=== PATIENT | female | born 1990 | race Caucasian/White ===

== ENCOUNTER 2022-08-20 23:04 | Emergency (ER) | payer MEDICAID, OTHER ==
[~2022-08-20] VITALS: Ht 160 cm; Wt 99.8 kg
[2022-08-21] MEDS ORDERED: IPRATROPIUM NEB FS 0.5 MG/2.5 ML AMPUL.NEB ONE (00:18)
[2022-08-21] MEDS ORDERED: ALBUTEROL FS 2.5 MG/3 ML VIAL.NEB ONE ×2 (00:18→01:42)
--- NOTE | 2022-08-21 00:20 | NUR ---
BIBS FROM HOME WITH CC OF COUGH AND SOB. +WHEEZING, -CP DISTRESS. AAOX4. HAS HX OF ASTHMA. ABLE TO MAKE NEEDS KNOWN. VITALS CHECKED. PLACED COMFORTABLY IN BED.
[2022-08-21] MEDS ORDERED: predniSONE 20 MG TABLET ONE (00:29)
[2022-08-21] MEDS ORDERED: ALBUTEROL FS 2.5 MG/3 ML VIAL.NEB NEB ONE ×2 (00:30→02:00)
[2022-08-21] MEDS ORDERED: IPRATROPIUM NEB FS 0.5 MG/2.5 ML AMPUL.NEB NEB ONE (00:30)
[2022-08-21] MEDS ORDERED: predniSONE 20 MG TABLET PO ONE (00:30)
[2022-08-21] MEDS ORDERED: ALBU8.5H8 INH (03:10)
[2022-08-21] MEDS ORDERED: PRED20TA PO (03:10)
[2022-08-21 03:34] VITALS: BP 149/95
--- NOTE | 2022-08-21 03:34 | NUR ---
Patient discharged to home in stable condition. Written and verbal after care instructions given. Patient verbalizes understanding of instruction.
== END 2022-08-21 03:34 | disposition home or self-care (01) ==
LOC: ER 23:15
DX: J45.901 Unspecified asthma with (acute) exacerbation (principal)
CPT/HCPCS: 99291; 94645; 94644 ×2; J7512

== ENCOUNTER 2022-09-06 02:51 | Emergency (ER) | payer OTHER ==
[~2022-09-06] VITALS: Ht 162.6 cm; Wt 90.7 kg
[~2022-09-06 02:51] MED LIST: ALBU8.5H8 INH; PRED20TA PO
[2022-09-06] MEDS ORDERED: IPRATROPIUM NEB FS 0.5 MG/2.5 ML AMPUL.NEB ONE ×2 (03:06→03:20)
[2022-09-06] MEDS ORDERED: ALBUTEROL FS 2.5 MG/0.5 ML VIAL.NEB ONE ×3 (03:06→04:09)
[2022-09-06] MEDS ORDERED: DEXAMETHASONE SOD PHOSPHATE 10 MG/ML VIAL ONE (03:08)
[2022-09-06] MEDS ORDERED: DEXAMETHASONE SOD PHOSPHATE 4 MG/ML VIAL IM ONE (03:30)
[2022-09-06] MEDS ORDERED: ALBUTEROL FS 2.5 MG/0.5 ML VIAL.NEB NEB ONE ×3 (03:30→04:00)
[2022-09-06] MEDS ORDERED: IPRATROPIUM NEB FS 0.5 MG/2.5 ML AMPUL.NEB NEB ONE (03:30)
[2022-09-06] MEDS ORDERED: PRED50TA PO (03:50)
[2022-09-06 04:38] VITALS: BP 129/77
== END 2022-09-06 04:38 | disposition home or self-care (01) ==
LOC: ER 02:55
DX: J45.901 Unspecified asthma with (acute) exacerbation (principal); Z79.899 Other long term (current) drug therapy
CPT/HCPCS: 99283; 96372; 94640 ×2; J1100

== ENCOUNTER 2022-09-22 00:12 | Emergency (ER) | payer OTHER ==
[~2022-09-22] VITALS: Ht 162.6 cm; Wt 90.7 kg
[~2022-09-22 00:12] MED LIST changes: +PRED50TA PO
--- NOTE | 2022-09-22 00:20 | NUR ---
PRESENTED TO THE ER W/ C/O BILATERAL WHEEZING AND SOB. SATTING 87-88% ON R/A. PLACED IN BED 6 ER ON MONITOR, RT CALLED AND MD MADE AWARE.
--- NOTE | 2022-09-22 00:21 | NUR ---
RT CALLED FOR BREATHING TX
[2022-09-22] MEDS ORDERED: IPRATROPIUM NEB FS 0.5 MG/2.5 ML AMPUL.NEB NEB ONE ×2 (00:30→01:30)
[2022-09-22] MEDS ORDERED: ALBUTEROL FS 2.5 MG/0.5 ML VIAL.NEB NEB ONE ×3 (00:30→02:00)
[2022-09-22] MEDS ORDERED: DEXAMETHASONE SOD PHOSPHATE 4 MG/ML VIAL IM ONE (00:30)
[2022-09-22] MEDS ORDERED: DEXAMETHASONE SOD PHOSPHATE 10 MG/ML VIAL ONE (00:34)
[2022-09-22] MEDS ORDERED: IPRATROPIUM NEB FS 0.5 MG/2.5 ML AMPUL.NEB ONE ×2 (00:49→01:06)
[2022-09-22] MEDS ORDERED: ALBUTEROL FS 2.5 MG/0.5 ML VIAL.NEB ONE ×3 (00:49→01:43)
--- NOTE | 2022-09-22 00:49 | NUR ---
RT at pt's bedside for breathing tx
[2022-09-22] MEDS ORDERED: ALBU8.5H8 INH (01:04)
[2022-09-22] MEDS ORDERED: PRED50TA PO (01:04)
--- NOTE | 2022-09-22 02:12 | NUR ---
Patient discharged to home in stable condition. Written and verbal after care instructions given. Patient verbalizes understanding of instruction.
[2022-09-22 02:52] VITALS: BP 139/78
== END 2022-09-22 02:12 | disposition home or self-care (01) ==
LOC: ER 00:15
DX: J45.901 Unspecified asthma with (acute) exacerbation (principal); Z79.899 Other long term (current) drug therapy
CPT/HCPCS: 99285; 96372; 94640 ×3; J1100

== ENCOUNTER 2022-10-09 02:31 | Inpatient (IN) | payer OTHER ==
[~2022-10-09] VITALS: Ht 162.6 cm; Wt 99.8 kg
[2022-10-09] MEDS ORDERED: methylPREDNISolone SOD SUCC 125 MG/2ML VIAL IV ONE (03:00)
[2022-10-09] MEDS ORDERED: ALBUTEROL FS 2.5 MG/3 ML VIAL.NEB CONTNEB ONE ×2 (03:00→05:00)
[2022-10-09] MEDS ORDERED: TDAP [DIPH/PERTUSSIS/TET] 0.5 ML VIAL IM ONE (03:00)
[2022-10-09] MEDS ORDERED: IPRATROPIUM NEB FS 0.5 MG/2.5 ML AMPUL.NEB NEB ONE ×2 (03:00→07:35)
[2022-10-09] MEDS ORDERED: LIDOCAINE 1%-EPI 1:100,000 20 ML VIAL TP ONE (03:00)
[2022-10-09] MEDS ORDERED: HYDROCODONE/APAP 5/325MG TABLET PO ONE (03:00)
--- NOTE | 2022-10-09 03:00 | NUR ---
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 Connected to the monitor and pulse ox. kept comfortable, will continue to monitor accordingly.
[2022-10-09] MEDS ORDERED: ALBUTEROL FS 2.5 MG/3 ML VIAL.NEB ONE ×2 (03:05→04:31)
[2022-10-09] MEDS ORDERED: IPRATROPIUM NEB FS 0.5 MG/2.5 ML AMPUL.NEB ONE (03:05)
[2022-10-09] MEDS ORDERED: methylPREDNISolone SOD SUCC 125 MG/2ML VIAL ONE (03:08)
--- NOTE | 2022-10-09 03:21 | NUR ---
RT at bedside, breathing treatment given.
[2022-10-09 03:33] LABS: BASOPHILS # (AUTO) 0.1 K/uL (0.0-0.2); BASOPHILS % (AUTO) 0.4 % (0.0-2.0); EOSINOPHILS % (AUTO) 8.2 % (0.0-6.0); HEMATOCRIT 39 % (33-45); HEMOGLOBIN 12.4 g/dL (11.5-14.8); LYMPHOCYTES # (AUTO) 1.8 K/uL (0.8-4.8); LYMPHOCYTES % (AUTO) 12.6 % (20.0-44.0); MEAN CORPUSCULAR HGB CONC 32 g/dl (31.0-36.0); MEAN CORPUSCULAR VOLUME 84 fL (82-100); MONOCYTES # (AUTO) 0.9 K/uL (0.1-1.30); MONOCYTES % (AUTO) 6.3 % (2.0-12.0); NEUTROPHILS # (AUTO) 10.3 K/uL (1.8-8.9); NEUTROPHILS % (AUTO) 72.5 % (43.0-81.0); PLATELET COUNT (AUTO) 327 K/uL (150-450); RED BLOOD CELL COUNT(AUTO) 4.68 MIL/uL (4.0-5.2); WHITE BLOOD COUNT (AUTO) 14.2 K/uL (4.3-11.0)
[2022-10-09 03:41] LABS: CARBON DIOXIDE 25 mmol/L (21-32); CHLORIDE 104 mmol/L (98-107); CREATININE 0.8 mg/dL (0.6-1.3); GLUCOSE 123 mg/dL (74-106); POTASSIUM 3.2 mmol/L (3.5-5.1); SODIUM SERUM 141 mmol/L (136-145); UREA NITROGEN, BLOOD 12 mg/dL (7-18)
[2022-10-09 03:55] LABS: ALANINE AMINOTRANSFERASE 30 U/L (12-78); ALBUMIN 3.4 g/dL (3.4-5.0); ALKALINE PHOSPHATASE 74 U/L (46-116); ASPARTATE AMINOTRANSFERASE 17 U/L (15-37); BILIRUBIN,DIRECT 0.1 mg/dL (0.0-0.2); BILIRUBIN,TOTAL 0.3 mg/dL (0.2-1.0); TOTAL PROTEIN, SERUM 7.7 g/dL (6.4-8.2)
--- NOTE | 2022-10-09 04:26 | NUR ---
covid swab collected and sent to lab
[2022-10-09] MEDS ORDERED: POTASSIUM CHLORIDE 20 MEQ TAB.PRT.SR PO ONE ×2 (04:30→04:49)
[2022-10-09] MEDS ORDERED: AZITHROMYCIN 500 MG in IV D5W 250 ML IV ONE (04:30)
[2022-10-09] MEDS ORDERED: CEFTRIAXONE 1GM BAG (ER ONLY) 1 GM/50 ML PIGGYBACK IV ONE (04:30)
[2022-10-09] MEDS ORDERED: AZITHROMYCIN 500 MG VIAL ONE (04:48)
[2022-10-09] MEDS ORDERED: CEFTRIAXONE 1 G VIAL ONE (04:48)
[2022-10-09] MEDS ORDERED: MAGNESIUM HYDROXIDE 30 ML UDC PO PRN (05:00)
[2022-10-09] MEDS ORDERED: ACETAMINOPHEN 325 MG TABLET PO PRN (05:00)
[2022-10-09] MEDS ORDERED: ONDANSETRON HCL/PF 4 MG/2 ML VIAL IVP PRN (05:00)
[2022-10-09] MEDS ORDERED: ALBUTEROL FS 2.5 MG/3 ML VIAL.NEB NEB ONE (07:35)
--- NOTE | 2022-10-09 07:41 | NUR ---
GOT BED 322-1 ADMITTING INFORMED.
--- NOTE | 2022-10-09 08:03 | NUR ---
REPORT GIVEN TO TREVON RN FOR CONTINUITY OF CARE.
--- NOTE | 2022-10-09 08:25 | NUR ---
ADMISSION NOTE Received patient from ER via gurney. Report given by CARLOS Peoples. Patient is A/O x 4, able to make needs known. On O2 at 3 LPM via NC, no s/s of distress noted. IV access on Left hand #22, SL intact and patent. All belongings accounted for, belonging sheet signed. VS taken as follows: BP 123/73, HR 103, RR 20, Temp 97.9 F, SPO2 94%. External monitor connected, reading sinus tachycardia. Skin assessment done, c/d/i. Wheezing noted upon auscultation. Bowel sounds present x 4. Safety precautions in place: bed in low, locked position; siderails up x 2; call light within reach. Will continue to monitor.
[2022-10-09] MEDS: methylPREDNISolone SOD SUCC 40 MG/ML VIAL IV SCH ×2 (08:51→16:28)
[2022-10-09] MEDS ORDERED: ALBU8.5H8 IH (09:56)
--- NOTE | 2022-10-09 11:00 | NUR ---
RN NOTE Urine collected and sent to lab.
[2022-10-09 11:08] VITALS: BP 131/69
[2022-10-09] MEDS ORDERED: ALBUTEROL FS 2.5 MG/3 ML VIAL.NEB NEB PRN (13:30)
[2022-10-09] MEDS: IPRATROPIUM NEB FS 0.5 MG/2.5 ML AMPUL.NEB NEB SCH ×2 (13:56→20:05)
[2022-10-09] MEDS: ALBUTEROL FS 2.5 MG/3 ML VIAL.NEB NEB SCH ×2 (13:56→20:05)
[2022-10-09 15:58] VITALS: BP 135/81
--- NOTE | 2022-10-09 18:46 | NUR ---
MS RN CLOSING NOTE Patient in bed, resting. A/O x 4, able to make needs known. On O2 at 5 LPM via NC, no s/s of distress noted. IV access on Left hand #22, SL intact and patent. Patient denies any pain or discomfort at this time. Safety precautions in place: bed in low, locked position; siderails up x 2; call light within reach. Will endorse to fast food shift lead nurse for GRISELDA. Addendum: 10/09/22 at 1851 by BERNA FRAGA RN ADD: All needs attended to. Due meds given.
--- NOTE | 2022-10-09 19:30 | NUR ---
MS RN OPENING NOTE RECEIVED PATIENT IN BED, ASLEEP BUT EASY TO AROUSE AND RESPONSIVE. ALERT AND ORIENTED X4. ABLE TO MAKE NEEDS KNOWN. AFEBRILE AND NOT IN ANY FORM OF ACUTE DISTRESS. ON O2 INHALATION VIA NASAL CANNULA AT 5LPM. WITH IV ACCESS ON R WRIST 22G-SL. SAFETY MEASURES IN PLACE. KEPT BED IN LOCKED AND IN LOW POSITION. SIDE RAILS UP X2. ADVISED TO USE THE CALL LIGHT WHEN IN NEED OF ASSISTANCE.
[2022-10-09 19:57] VITALS: BP 140/87
[2022-10-10] MEDS: methylPREDNISolone SOD SUCC 40 MG/ML VIAL IV SCH ×3 (00:24→16:22)
[2022-10-10] MEDS: IPRATROPIUM NEB FS 0.5 MG/2.5 ML AMPUL.NEB NEB SCH ×5 (01:30→20:12)
[2022-10-10] MEDS: ALBUTEROL FS 2.5 MG/3 ML VIAL.NEB NEB SCH ×5 (01:30→20:12)
[2022-10-10] MEDS ORDERED: CEFTRIAXONE 1 G in IV D5W 50 ML IV SCH (04:00)
[2022-10-10] MEDS ORDERED: ZITHROMAX 500 MG/250 ML D5W IV SCH ×2 (05:00)
[2022-10-10] MEDS ORDERED: AZITHROMYCIN 500 MG in IV D5W 250 ML IV SCH (05:00)
[2022-10-10 06:27] LABS: BASOPHILS % (AUTO) 0.1 % (0.0-2.0); HEMATOCRIT 37 % (33-45); HEMOGLOBIN 11.7 g/dL (11.5-14.8); LYMPHOCYTES % (AUTO) 4.9 % (20.0-44.0); MEAN CORPUSCULAR HGB CONC 31 g/dl (31.0-36.0); MEAN CORPUSCULAR VOLUME 85 fL (82-100); MONOCYTES % (AUTO) 5.1 % (2.0-12.0); NEUTROPHILS # (AUTO) 17.6 K/uL (1.8-8.9); NEUTROPHILS % (AUTO) 89.9 % (43.0-81.0); PLATELET COUNT (AUTO) 353 K/uL (150-450); RED BLOOD CELL COUNT(AUTO) 4.39 MIL/uL (4.0-5.2); WHITE BLOOD COUNT (AUTO) 19.6 K/uL (4.3-11.0)
--- NOTE | 2022-10-10 06:30 | NUR ---
MS RN CLOSING NOTE PATIENT IN BED, ASLEEP BUT EASY TO AROUSE AND RESPONSIVE. ALERT AND ORIENTED X4. ABLE TO MAKE NEEDS KNOWN. AFEBRILE AND NOT IN ANY FORM OF ACUTE DISTRESS. ON O2 INHALATION VIA NASAL CANNULA AT 5LPM. WITH IV ACCESS ON R WRIST 22G-SL. MEDICATED ORDERED. ON IV ATB, MONITORED FOR ANY ADVERSE REACTION. SAFETY MEASURES IN PLACE. KEPT BED IN LOCKED AND IN LOW POSITION. SIDE RAILS UP X2. ADVISED TO USE THE CALL LIGHT WHEN IN NEED OF ASSISTANCE. ALL NURSING NEEDS ATTENDED. ENDORSED TO INCOMING SHIFT FOR CONTINUITY OF CARE.
[2022-10-10 06:45] LABS: CALCIUM, SERUM 9.6 mg/dL (8.5-10.1); CREATININE 0.7 mg/dL (0.6-1.3); MAGNESIUM 2.2 mg/dL (1.8-2.4); POTASSIUM 4.4 mmol/L (3.5-5.1)
--- NOTE | 2022-10-10 07:30 | NUR ---
RN OPENING NOTE RECEIVED PATIENT IN BED, AWAKE. A/O X4, VERBALLY RESPONSIVE AND ABLE TO MAKE NEEDS KNOWN. NO SIGNS OF ACUTE DISTRESS NOTED. ON O2 INHALATION @ 5LPM VIA N/C, PATIENT DENIES SOB, BREATHING EVEN AND UNLABORED. PATIENT STATED SHE FEELS BETTER. DENIES ANY PAIN OR DISCOMFORT. NOTED WITH IV ACCESS ON RIGHT WRIST #22G, INTACT AND PATENT, SALINE LOCKED. SAFETY MEASURE IN PLACE. BED IN LOW AND LOCKED POSITION, SIDE RAILS UP X2, CALL LIGHT PLACED WITHIN EASY REACH. WILL CONTINUE TO MONITOR PATIENT.
[2022-10-10 09:02] VITALS: BP 125/67
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
[2022-10-10] MEDS ORDERED: diphenhydrAMINE HCL 25 MG CAPSULE PO PRN (09:25)
[2022-10-10] MEDS: AZITHROMYCIN 250 MG TABLET PO SCH (12:02)
--- NOTE | 2022-10-10 18:41 | NUR ---
RN CLOSING NOTE PATIENT IN BED, AWAKE. NO SIGNS OF ACUTE DISTRESS NOTED. TITRATED O2 INHALATION TO 3LPM VIA N/C, SATURATION @93-95%, BREATHING EVEN AND UNLABORED. DENIED ANY PAIN OR DISCOMFORT THROUGHOUT THE SHIFT. WITH IV ACCESS ON RIGHT WRIST #22G, INTACT AND PATENT, SALINE LOCKED. ALL DUE MEDS GIVEN. SAFETY MEASURE MAINTAINED. BED IN LOW AND LOCKED POSITION, SIDE RAILS UP X2, CALL LIGHT PLACED WITHIN EASY REACH. WILL ENDORSE TO NEXT SHIFT FOR GRISELDA.
--- NOTE | 2022-10-10 19:15 | NUR ---
RN OPENING NOTE RECEIVED PATIENT IN BED, AWAKE, ALERT AND ORIENTED X4, VERBALLY RESPONSIVE AND ABLE TO MAKE NEEDS KNOWN. NO SIGNS OF ACUTE DISTRESS NOTED. ON O2 INHALATION @ 3LPM VIA N/C, PATIENT DENIES SOB, BREATHING EVEN AND UNLABORED. DENIES ANY PAIN OR DISCOMFORT AT THIS TIME. NOTED WITH IV ACCESS ON RIGHT WRIST #22G, INTACT AND PATENT, SALINE LOCKED. SAFETY MEASURE IN PLACE. BED IN LOW AND LOCKED POSITION, SIDE RAILS UP X2, CALL LIGHT PLACED WITHIN EASY REACH. WILL CONTINUE TO MONITOR PATIENT THROUGHOUT THE SHIFT.
--- NOTE | 2022-10-10 19:40 | NUR ---
RN OPENING NOTE RECEIVED PATIENT IN BED, AWAKED AOX4 ABLE TO MAKE NEEDS KNOWN.ON RM AIR YOKO WELL SAT 97.9% NO SOB/DISTRESS NOTED,BREATHING EVEN UNLABORED,IV ACCESS ON CHELI ML SL,PATENT AND INTACT,SAFETY MEASURE IN PLACE. BED IN LOW AND LOCKED POSITION, SIDE RAILS UP X2, CALL LIGHT PLACED WITHIN EASY REACH. WILL CONTINUE TO MONITOR.
[2022-10-10 20:00] VITALS: BP 147/73
[2022-10-11] MEDS: methylPREDNISolone SOD SUCC 40 MG/ML VIAL IV SCH ×2 (00:05→08:28)
[2022-10-11] MEDS: IPRATROPIUM NEB FS 0.5 MG/2.5 ML AMPUL.NEB NEB SCH ×4 (01:30→13:30)
[2022-10-11] MEDS: ALBUTEROL FS 2.5 MG/3 ML VIAL.NEB NEB SCH ×4 (01:30→13:30)
--- NOTE | 2022-10-11 06:13 | NUR ---
RN OPENING NOTE PATIENT IN BED ASLEEP, AROUSES EASILY. NO SIGNS OF ACUTE DISTRESS NOTED. ON O2 INHALATION @ 3LPM VIA N/C, PATIENT DENIES SOB, BREATHING EVEN AND UNLABORED. DENIES ANY PAIN OR DISCOMFORT AT THIS TIME. WITH IV ACCESS ON RIGHT WRIST #22G, INTACT AND PATENT, SALINE LOCKED. SAFETY MEASURES IN PLACE. BED IN LOW AND LOCKED POSITION, SIDE RAILS UP X2, CALL LIGHT PLACED WITHIN EASY REACH. WILL ENDORSE TO ONCOMING SHIFT FOR CONTINUITY OF CARE.
--- NOTE | 2022-10-11 07:59 | NUR ---
MS RN OPENING NOTE Patient in bed, asleep. A/O x 4. On O2 at 3 LPM via NC, no s/s of distress noted. IV access on Left hand #22 SL, intact and patent. Safety precautions in place: bed in low, locked position; siderails up x2; call light within reach. Will continue to monitor.
[2022-10-11 08:00] VITALS: BP 120/78
[2022-10-11] MEDS: AZITHROMYCIN 250 MG TABLET PO SCH (11:50)
[2022-10-11] MEDS ORDERED: METH4TAB17 PO (13:02)
[2022-10-11] MEDS ORDERED: AZIT250T PO (13:02)
--- NOTE | 2022-10-11 13:30 | NUR ---
DISCHARGE NOTE Received order for discharge. Patient is A/O x 4, able to make needs known. Stable on room air, no SOB or s/s of distress noted. Discharge instructions given both verbally and in written form, verbalized understanding. Denies any pain or discomfort at this time. All belongings accounted for, belonging sheet signed. IV access removed, catheter tip intact. Pressure dressing applied. ID band removed. Patient left unit ambulatory in stable condition.
== END 2022-10-11 13:30 | disposition home or self-care (01) | DRG 141 ==
LOC: ER 02:33 → TELE 07:45 → MED 15:55
PROVIDERS: ADMIT Nurse Practitioner Acute Care; ATTEND Nurse Practitioner Acute Care
DX: J45.901 Unspecified asthma with (acute) exacerbation (principal); J96.01 Acute respiratory failure with hypoxia; J45.902 Unspecified asthma with status asthmaticus; J32.9 Chronic sinusitis, unspecified; E66.01 Morbid (severe) obesity due to excess calories; Z68.37 Body mass index [BMI] 37.0-37.9, adult; F17.210 Nicotine dependence, cigarettes, uncomplicated; E87.6 Hypokalemia; Z20.822 Contact with and (suspected) exposure to COVID-19; G47.33 Obstructive sleep apnea (adult) (pediatric); Z79.899 Other long term (current) drug therapy; Z90.49 Acquired absence of other specified parts of digestive tract
CPT/HCPCS: 36415; 36600; 70220-TC; 71045-TC; 80048-TC; 80076-TC; 82803-TC; 83735-TC; 83880; 84100-TC; 84484-TC; 84703-TC; 85025-TC; 87081-TC; 94799-TC; A4223; C9803; G0378; J0456; J0696; J2920; J2930; J7030; J7050; J7060; Q0163

== ENCOUNTER 2022-11-01 23:25 | Emergency (ER) | payer OTHER ==
[~2022-11-01] VITALS: Ht 162.6 cm; Wt 99.8 kg
[2022-11-01 23:25] VITALS: BP 142/98
[~2022-11-01 23:25] MED LIST changes: +ALBU8.5H8 IH; -ALBU8.5H8 INH; +AZIT250T PO; +METH4TAB17 PO; -PRED20TA PO; -PRED50TA PO
[2022-11-01] MEDS ORDERED: methylPREDNISolone SOD SUCC 125 MG/2ML VIAL IV ONE (23:30)
[2022-11-01] MEDS ORDERED: Magnesium 1GM/D5W 100ML PREMIX 200 ML IV ONE (23:30)
[2022-11-01] MEDS ORDERED: ALBUTEROL FS 2.5 MG/3 ML VIAL.NEB NEB ONE (23:30)
[2022-11-01] MEDS ORDERED: IPRATROPIUM NEB FS 0.5 MG/2.5 ML AMPUL.NEB NEB ONE (23:30)
[2022-11-01] MEDS ORDERED: IPRATROPIUM NEB FS 0.5 MG/2.5 ML AMPUL.NEB ONE (23:36)
[2022-11-01] MEDS ORDERED: ALBUTEROL FS 2.5 MG/3 ML VIAL.NEB ONE (23:36)
[2022-11-01] MEDS ORDERED: Magnesium 1GM/D5W 100ML PREMIX 100 ML IV ONE (23:49)
[2022-11-01] MEDS ORDERED: methylPREDNISolone SOD SUCC 125 MG/2ML VIAL ONE (23:49)
[2022-11-02] MEDS ORDERED: IPRATROPIUM NEB FS 0.5 MG/2.5 ML AMPUL.NEB ONE ×2 (00:38→01:53)
[2022-11-02] MEDS ORDERED: ALBUTEROL FS 2.5 MG/3 ML VIAL.NEB ONE ×2 (00:38→01:53)
[2022-11-02] MEDS ORDERED: IPRATROPIUM NEB FS 0.5 MG/2.5 ML AMPUL.NEB NEB ONE ×2 (01:00→02:00)
[2022-11-02] MEDS ORDERED: ALBUTEROL FS 2.5 MG/3 ML VIAL.NEB NEB ONE ×2 (01:00→02:00)
[2022-11-02] MEDS ORDERED: ALBU18HF2 INH (01:37)
[2022-11-02] MEDS ORDERED: PRED50TA PO (01:37)
[2022-11-02] MEDS ORDERED: BUDE10.2 INH (02:35)
--- NOTE | 2022-11-02 02:55 | NUR ---
Patient discharged to home in stable condition. Written and verbal after care instructions given. Patient verbalizes understanding of instruction. IV removed. Catheter intact and site benign. Pressure and 4x4 applied to site. No bleeding noted.
== END 2022-11-02 03:03 | disposition home or self-care (01) ==
LOC: ER 23:27
DX: J45.901 Unspecified asthma with (acute) exacerbation (principal); Z79.899 Other long term (current) drug therapy
CPT/HCPCS: 99291; 96374; 96375; 94640 ×2; J2930; A4223; J3475

== ENCOUNTER 2022-11-27 20:18 | Inpatient (IN) | payer OTHER ==
[~2022-11-27] VITALS: Ht 162.6 cm; Wt 117.9 kg
[~2022-11-27 20:18] MED LIST changes: +ALBU18HF2 INH; +BUDE10.2 INH; +PRED50TA PO
[2022-11-27] MEDS ORDERED: ALBUTEROL FS 2.5 MG/3 ML VIAL.NEB ONE ×3 (20:50→23:25)
--- NOTE | 2022-11-27 20:50 | NUR ---
BIBSELF FROM HOME C/O SOB, WHEEZING NOTED. SATTING 81% ON R/A. HX ASTHMA. AMBULATORY, PLACED IN BED, DYSPNEIC RR- 25. MD AT BEDSIDE FOR EVAL.
[2022-11-27] MEDS ORDERED: IPRATROPIUM NEB FS 0.5 MG/2.5 ML AMPUL.NEB ONE ×2 (20:51→21:58)
[2022-11-27] MEDS ORDERED: predniSONE 20 MG TABLET ONE (20:52)
--- NOTE | 2022-11-27 20:56 | NUR ---
X-RAY TECH AT BEDSIDE
[2022-11-27] MEDS ORDERED: ALBUTEROL FS 2.5 MG/3 ML VIAL.NEB CONTNEB ONE ×3 (21:00→23:30)
[2022-11-27] MEDS ORDERED: IPRATROPIUM NEB FS 0.5 MG/2.5 ML AMPUL.NEB NEB ONE ×2 (21:00→22:00)
[2022-11-27] MEDS ORDERED: predniSONE 20 MG TABLET PO ONE (21:00)
[2022-11-27] MEDS ORDERED: Magnesium 1GM/D5W 100ML PREMIX 100 ML IV ONE ×2 (21:55→23:03)
[2022-11-27] MEDS: Magnesium 1GM/D5W 100ML PREMIX 100 ML IV SCH ×2 (22:20→23:10)
[2022-11-28] MEDS ORDERED: ALBUTEROL FS 2.5 MG/0.5 ML VIAL.NEB NEB ONE (01:00)
[2022-11-28] MEDS ORDERED: IPRATROPIUM NEB FS 0.5 MG/2.5 ML AMPUL.NEB NEB ONE (01:00)
--- NOTE | 2022-11-28 01:25 | NUR ---
COVID SWAB COLLECTED AND SENT TO LAB
[2022-11-28] MEDS ORDERED: ALBUTEROL FS 2.5 MG/0.5 ML VIAL.NEB ONE (01:50)
[2022-11-28] MEDS ORDERED: IPRATROPIUM NEB FS 0.5 MG/2.5 ML AMPUL.NEB ONE (01:50)
[2022-11-28 02:15] LABS: BASOPHILS % (AUTO) 0.2 % (0.0-2.0); EOSINOPHILS % (AUTO) 0.6 % (0.0-6.0); HEMATOCRIT 39 % (33-45); HEMOGLOBIN 12.5 g/dL (11.5-14.8); LYMPHOCYTES # (AUTO) 0.6 K/uL (0.8-4.8); LYMPHOCYTES % (AUTO) 6.1 % (20.0-44.0); MEAN CORPUSCULAR HGB CONC 32 g/dl (31.0-36.0); MEAN CORPUSCULAR VOLUME 83 fL (82-100); MONOCYTES # (AUTO) 0.1 K/uL (0.1-1.30); MONOCYTES % (AUTO) 1.2 % (2.0-12.0); NEUTROPHILS # (AUTO) 9.2 K/uL (1.8-8.9); NEUTROPHILS % (AUTO) 91.9 % (43.0-81.0); PLATELET COUNT (AUTO) 341 K/uL (150-450); RED BLOOD CELL COUNT(AUTO) 4.73 MIL/uL (4.0-5.2); WHITE BLOOD COUNT (AUTO) 10.1 K/uL (4.3-11.0)
[2022-11-28 02:25] LABS: CALCIUM, SERUM 9.1 mg/dL (8.5-10.1); CREATININE 0.9 mg/dL (0.6-1.3); POTASSIUM 4.1 mmol/L (3.5-5.1)
--- NOTE | 2022-11-28 03:50 | NUR ---
SENIOR ELECTRONICS ENGINEER NOTES ADMITTED 32 YEAR OLD FEMALE TRANSPORTED VIA A GURNEY BY 2 ED PERSONNEL, PATIENT ALERT ORIENTED X4 O2 VIA NC @ 3L, ON REHABILITATION SERVICES COUNSELOR SINUS RHYTHM, IV ACCESS ON R HAND 24G SL. SKIN ASSESSMENT DONE SKIN INTACT, VITALS FOLLOW TEMP 98.6,HR 96,BP 128/83, O2 94%. BELONGING AT BEDSIDE CHECK, SAFETY MEASURE CHECK, BED SIDE RAIL UP X3, BED IN LOW SETTING POSITION,
--- NOTE | 2022-11-28 03:52 | NUR ---
PT TRANSFERRING TO 112-1 VIA ACLS PROTOCOL. ALL BELONGINGS WITH PT. VSS.
--- NOTE | 2022-11-28 03:52 | NUR ---
MRSA SWAB COLLECTED VIA NARE AND SENT TO LAB
[2022-11-28 04:00] VITALS: BP 128/83; TEMP 98.6
[2022-11-28] MEDS ORDERED: ALBUTEROL FS 2.5 MG/3 ML VIAL.NEB CONTNEB ONE (05:00)
[2022-11-28] MEDS ORDERED: methylPREDNISolone SOD SUCC 125 MG/2ML VIAL IV SCH (05:00)
[2022-11-28] MEDS ORDERED: ACETAMINOPHEN 325 MG TABLET PO PRN (05:00)
[2022-11-28] MEDS ORDERED: Z GUARD REMEDY 4 OZ OINT TP PRN (05:00)
[2022-11-28] MEDS ORDERED: ONDANSETRON HCL/PF 4 MG/2 ML VIAL IVP PRN (05:00)
[2022-11-28] MEDS ORDERED: methylPREDNISolone SOD SUCC 125 MG/2ML VIAL ONE (05:28)
[2022-11-28] MEDS: IV NS 0.9% 1,000 ML IV PRN ×2 (05:42→17:51)
--- NOTE | 2022-11-28 07:00 | NUR ---
RN OPENING NOTE PATIENT IN BED ASLEEP, ALERT ORIENTED X4, ON O2SAT 3LPM NC. NO SOB, PAIN , DISTRESS OR DISCOMFORT NOTED. IV ACCESS R HAND 24G RUNNING NS 75ML/HR . HOB ELEVATED, SAFETY PRECAUTIONS IN PLACE, SIDE RAILS UP X2. BED IN LOW POSITION, LOCKED, ALARM ON. BED AND CALL LIGHT WITHIN REACH. WILL CONTINUE TO MONITOR.
--- NOTE | 2022-11-28 07:03 | NUR ---
RN CLOSING NOTE PATIENT IN BED ASLEEP, ALERT ORIENTED X4, SOB AT O2SAT 3LPM NC , IV ACCESS R HAND 24G RUNNING NS 75ML/HR . HOB ELEVATED, SIDE RAILS UP X2. BED IN LOW POSITION, LOCKED, ALARM ON. SAFETY MEASURE IN PLACE . ALL MEDICATION GIVEN ON TIME. CALL LIGHT IN REACH. ALL NURSING NEEDS ATTENDED.WILL ENDORSE TO DAY SHIFT NURSE.
[2022-11-28] MEDS: IPRATROPIUM NEB FS 0.5 MG/2.5 ML AMPUL.NEB NEB SCH ×5 (07:30→23:27)
[2022-11-28] MEDS: ALBUTEROL FS 2.5 MG/3 ML VIAL.NEB NEB SCH ×5 (07:35→23:27)
[2022-11-28] MEDS: PANTOPRAZOLE 40 MG TABLET.DR PO SCH (08:18)
[2022-11-28] MEDS ORDERED: FLUTICASONE/VILANTEROL 1 EACH BLST.W.DEV IH SCH (09:00)
[2022-11-28] MEDS: ENOXAPARIN SODIUM 40 MG/0.4 ML DISP.SYRIN SQ SCH (10:20)
--- NOTE | 2022-11-28 13:27 | NUR ---
RN NOTE SOLUMEDROL NOT IN STOCK. PHARMACY CALLED. PER PHARMACY, THEY ARE AWAITING FOR MD RESPONSE FOR A DIFFERENT MEDICATION. WAITING ORDERS.
--- NOTE | 2022-11-28 14:59 | NUR ---
RN NOTE PER DIMA PHARMACIST, THERE IS NO UPDATE FOR SOLU-MEDROL REPLACEMENT MEDICATION. AWAITING RESPONSE FROM .
[2022-11-28 16:00] VITALS: BP 124/65; TEMP 98.1
--- NOTE | 2022-11-28 19:45 | NUR ---
RN CLOSING NOTE PATIENT IN BED ASLEEP, ALERT ORIENTED X4, ON O2SAT 3LPM NC. NO SOB, PAIN , DISTRESS OR DISCOMFORT NOTED. IV ACCESS R HAND 24G RUNNING NS 75ML/HR . SOLUMEDROL NOT GIVEN PHARMACY WAS CONTACTED SEVERAL TIMES DURING MY SHIFT. PER PHARMACY SOLU-MEDROL NOT IN STOCK FOR THEA AND THEY WERE AWAITING RESPONSE FROM CURTIS JOHNSON. DOCTOR CURTIS JOHNSON WAS NOTIFIED AND NO NEW ORDERS RECEIVED FOR SOLUMEDROL, ALL OTHER ORDERS WERE FOLLOWED, HEAD OF BED ELEVATED. PATIENT DENIES ANY PAIN AT THIS TIME. SAFETY PRECAUTIONS IN PLACE, SIDE RAILS UP X2. BED IN LOW POSITION, LOCKED, ALARM ON. BED AND CALL LIGHT WITHIN REACH. REPORT GIVEN TO FAUCET POLISHER NURSE.
--- NOTE | 2022-11-28 19:46 | NUR ---
MS RN OPENING NOTES - RECEIVED PATIENT AWAKE, HOB IN HIGH-MAGALLON'S. A/O X4. ON O2 AT 3LPM VIA NASAL CANULA. BREATHING EVEN AND NON-LABORED. DENIES PAIN AT THIS TIME. HAS RIGHT HAND IV ACCESS #24G WITH NS RUNNING AT 75 ML/HR. NO S/S OF INFILTRATION NOTED. SAFETY PRECAUTIONS IN PLACE: BED LOCKED AND IN LOW POSITION, SIDE RAILS UP X3, CALL LIGHT WITHIN REACH. WILL CONTINUE PLAN OF CARE.
[2022-11-28] MEDS ORDERED: methylPREDNISolone SOD SUCC 40 MG/ML VIAL ONE (21:58)
[2022-11-28] MEDS: methylPREDNISolone SOD SUCC 40 MG/ML VIAL IV SCH (22:00)
[2022-11-28 22:51] VITALS: BP 150/72; TEMP 98.6
[2022-11-29] MEDS: IPRATROPIUM NEB FS 0.5 MG/2.5 ML AMPUL.NEB NEB SCH ×6 (03:43→23:37)
[2022-11-29] MEDS: ALBUTEROL FS 2.5 MG/3 ML VIAL.NEB NEB SCH ×6 (03:43→23:37)
[2022-11-29 04:30] VITALS: BP 120/60; TEMP 98
[2022-11-29] MEDS ORDERED: methylPREDNISolone SOD SUCC 40 MG/ML VIAL ONE (05:04)
[2022-11-29] MEDS: methylPREDNISolone SOD SUCC 40 MG/ML VIAL IV SCH (05:07)
[2022-11-29 06:54] LABS: BASOPHILS % (AUTO) 0.3 % (0.0-2.0); HEMATOCRIT 37 % (33-45); HEMOGLOBIN 11.7 g/dL (11.5-14.8); LYMPHOCYTES # (AUTO) 0.9 K/uL (0.8-4.8); MEAN CORPUSCULAR HGB CONC 32 g/dl (31.0-36.0); MEAN CORPUSCULAR VOLUME 84 fL (82-100); MONOCYTES # (AUTO) 0.2 K/uL (0.1-1.30); MONOCYTES % (AUTO) 1.7 % (2.0-12.0); NEUTROPHILS # (AUTO) 11.7 K/uL (1.8-8.9); PLATELET COUNT (AUTO) 290 K/uL (150-450); RED BLOOD CELL COUNT(AUTO) 4.41 MIL/uL (4.0-5.2); WHITE BLOOD COUNT (AUTO) 12.8 K/uL (4.3-11.0)
[2022-11-29] MEDS: IV NS 0.9% 1,000 ML IV PRN (07:00)
--- NOTE | 2022-11-29 07:01 | NUR ---
MS RN CLOSING NOTES - PATIENT RESTING IN BED, ABLE TO VERBALIZED NEEDS. ENCOURAGED TO KEEP HOB ELEVATED. SATURATING AT 91-95% ON 3LPM. NOT IN CARDIAC OR RESPIRATORY DISTRESS. AFEBRILE. RIGHT FOREARM IV ACCESS INTACT, PATENT AND FLUSHING. AMBULATORY AND INDEPENDENT WITH ADLS. CLEAR YELLOW URINE OUTPUT NOTED. ALL DUE MEDS GIVEN AND NEEDS ATTENDED. SAFETY PRECAUTIONS MAINTAINED. WILL ENDORSE TO AM RN FOR GRISELDA.
[2022-11-29 07:09] LABS: CALCIUM, SERUM 8.7 mg/dL (8.5-10.1); CREATININE 0.6 mg/dL (0.6-1.3); PHOSPHORUS 3.5 mg/dL (2.5-4.9); POTASSIUM 4.5 mmol/L (3.5-5.1)
--- NOTE | 2022-11-29 07:35 | NUR ---
MS RN OPENING NOTES PATIENT AWAKE IN BED, A/OX4 ABLE TO VERBALIZED NEEDS. ENCOURAGED TO KEEP HOB ELEVATED. SATURATING AT 91-95% ON 3LPM. NOT IN ANY FORM OF CARDIAC OR RESPIRATORY DISTRESS. AFEBRILE. RIGHT FOREARM IV ACCESS INTACT, PATENT AND FLUSHING. AMBULATORY AND INDEPENDENT WITH ADLS. SAFETY PRECAUTIONS IN PLACED. BED LOCKED AND IN LOWEST POSITION, BED ALARM ON, HOB ELEVATED, SIDE RAILS UP X3. WILL CONTINUE TO MONITOR.
[2022-11-29] MEDS: PANTOPRAZOLE 40 MG TABLET.DR PO SCH (08:43)
[2022-11-29] MEDS: ENOXAPARIN SODIUM 40 MG/0.4 ML DISP.SYRIN SQ SCH (08:51)
[2022-11-29 11:00] VITALS: BP 122/78; TEMP 97.9
[2022-11-29] MEDS ORDERED: methylPREDNISolone SOD SUCC 40 MG/ML VIAL IV SCH (11:30)
[2022-11-29 17:50] VITALS: BP 126/73; TEMP 98.4
--- NOTE | 2022-11-29 18:00 | NUR ---
RN NOTE OXYGEN TITRATED, DECREASED TO 1LPM, TOLERATING WELL, SATURATING BETWEEN 91-95%. WILL MONITOR
--- NOTE | 2022-11-29 18:46 | NUR ---
RN CLOSING NOTE PATIENT AWAKE IN BED, A/OX4 ABLE TO VERBALIZED NEEDS. ENCOURAGED TO KEEP HOB ELEVATED. SATURATING AT 91-95% ON 1LPM. NOT IN ANY FORM OF CARDIAC OR RESPIRATORY DISTRESS. AFEBRILE. RIGHT FOREARM IV ACCESS INTACT, PATENT AND FLUSHING. AMBULATORY AND INDEPENDENT WITH ADLS.ALL NEEDS ATTENDED, ALL DUE MEDS GIVEN, NO SIGNIFICANT CHANGES ON PATIENT'S CONDITION NOTED ALL THROUGHOUT THE SHIFT. SAFETY PRECAUTIONS IN PLACED. BED LOCKED AND IN LOWEST POSITION, BED ALARM ON, HOB ELEVATED, SIDE RAILS UP X3.ENDORSED TO NEXT NURSE FOR GRISELDA.
--- NOTE | 2022-11-29 19:30 | NUR ---
MS RN OPENING NOTE RECEIVED PATIENT FROM AM NURSE; PATIENT AWAKE IN BED, A/O X 4, ABLE TO MAKE NEEDS KNOWN; STABLE ON 1LPM OXYGEN VIA NASAL CANNULA, TOLERATING WELL AND NO S/S OF DISTRESS NOTED; WITH IV ACCESS AT RIGHT FOREARM G#24 RUNNING WITH NORMAL SALINE AT 75 ML/HR; ENCOURAGED VERBALIZATION OF NEEDS; SAFETY PRECAUTIONS IN PLACE, BED LOCKED AND IN LOWEST POSITION, BED ALARM ON, HOB ELEVATED, SIDE RAILS UP X3, CALL LIGHT AND TABLE WITHIN REACH; WILL CONTINUE TO MONITOR THROUGHOUT SHIFT
[2022-11-29 20:00] VITALS: BP 134/80; TEMP 98
[2022-11-30] MEDS: IPRATROPIUM NEB FS 0.5 MG/2.5 ML AMPUL.NEB NEB SCH ×4 (02:57→15:16)
[2022-11-30] MEDS: ALBUTEROL FS 2.5 MG/3 ML VIAL.NEB NEB SCH ×4 (02:57→15:16)
[2022-11-30 04:00] VITALS: BP 116/75; TEMP 98
--- NOTE | 2022-11-30 04:38 | NUR ---
MS GONZALEZ NOTE LINDA INFORMED THAT UGO DOESN'T WANT TO WAKE UP THE PATIENT FROM SLEEPING FOR VITAL SIGNS MONITORING AT 0400H. Addendum: 11/30/22 at 0440 by BENNIE SANDOVAL RN WRONG ENTRY OF PATIENT.
[2022-11-30] MEDS: IV NS 0.9% 1,000 ML IV PRN (04:54)
--- NOTE | 2022-11-30 06:48 | NUR ---
MS RN CLOSING NOTE PATIENT AWAKE IN BED, A/O X 4, ABLE TO MAKE NEEDS KNOWN; STABLE ON 1LPM OXYGEN VIA NASAL CANNULA, TOLERATING WELL AND NO S/S OF DISTRESS NOTED; WITH IV ACCESS AT RIGHT FOREARM G#24 AND LEFT WRIST G#22, INTACT AND PATENT RUNNING WITH NORMAL SALINE AT 75 ML/HR; ADMINISTERED MEDICATIONS PRESCRIBED; PATIENT'S NEEDS ATTENDED; MONITORED ACCORDINGLY; SAFETY PRECAUTIONS IN PLACE, BED LOCKED AND IN LOWEST POSITION, BED ALARM ON, HOB ELEVATED, SIDE RAILS UP X3, CALL LIGHT AND TABLE WITHIN REACH; WILL ENDORSE TO AM NURSE FOR GRISELDA.
--- NOTE | 2022-11-30 07:00 | NUR ---
MS RN OPENING NOTE PATIENT AWAKE IN BED, A/O X 4, ABLE TO MAKE NEEDS KNOWN, STABLE ON 1LPM OXYGEN VIA NASAL CANNULA, TOLERATING WELL AND NO S/S OF DISTRESS NOTED; WITH IV ACCESS AT LEFT WRIST G#22, INTACT AND PATENT RUNNING WITH NORMAL SALINE AT 75 ML/HR. SAFETY PRECAUTIONS IN PLACE, BED LOCKED AND IN LOWEST POSITION, BED ALARM ON, HOB ELEVATED, SIDE RAILS UP X3, CALL LIGHT AND TABLE WITHIN REACH; WILL CONTINUE TO MONITOR.
[2022-11-30 08:00] VITALS: BP 97/78; TEMP 98.9
[2022-11-30] MEDS: ENOXAPARIN SODIUM 40 MG/0.4 ML DISP.SYRIN SQ SCH (08:15)
[2022-11-30] MEDS: PANTOPRAZOLE 40 MG TABLET.DR PO SCH (08:15)
[2022-11-30] MEDS ORDERED: predniSONE 20 MG TABLET PO SCH (09:00)
[2022-11-30] MEDS ORDERED: PRED20TA PO (12:24)
--- NOTE | 2022-11-30 15:10 | NUR ---
MEAT SUPERVISOR NOTE PATIENT WS DISCHARGE TO HOME IN STABLE CONDITION WITH NO SOB, PAIN OR DISCOMFORT NOTED. ON ROOM AIR, 02 SATURATION AT 94%. IV ACCESS REMOVED, NO BLEEDING NOTED, DRESSING INTACT. PATIENT SIGNED THE DISCHARGE PAPERS ALONG WITH BELONGINGS. ALL BELONGINGS TAKEN WITH PATIENT.
--- NOTE | 2022-11-30 15:16 | NUR ---
PATIENT IS DISCHARGED. Addendum: 11/30/22 at 1517 by SERAFIN MOE RT Amended: Links added.
== END 2022-11-30 17:01 | disposition home or self-care (01) | DRG 133 ==
LOC: ER 20:49 → TELE1 11-28 02:54 → MEDSG1 11-28 05:04
PROVIDERS: ADMIT Student in an Organized Health Care Education/Training Program
DX: J96.01 Acute respiratory failure with hypoxia (principal); J45.901 Unspecified asthma with (acute) exacerbation; Z20.822 Contact with and (suspected) exposure to COVID-19; Z91.199 Patient's noncompliance with other medical treatment and regimen due to unspecified reason; Z87.891 Personal history of nicotine dependence; G47.33 Obstructive sleep apnea (adult) (pediatric); E66.01 Morbid (severe) obesity due to excess calories; Z68.41 Body mass index [BMI] 40.0-44.9, adult; Z71.6 Tobacco abuse counseling; Z79.51 Long term (current) use of inhaled steroids
CPT/HCPCS: 36415; 70220-TC; 71045-TC; 80048-TC; 83735-TC; 84100-TC; 84703-TC; 85025-TC; 87081-TC; 94762-TC; 94799-TC; A4223; C9803; G0378; J1650; J2920; J2930; J3475; J7030

== ENCOUNTER 2023-01-12 07:30 | Emergency (ER) | payer OTHER ==
[~2023-01-12] VITALS: Ht 162.6 cm; Wt 119.3 kg
[2023-01-12 07:30] VITALS: TEMP 98.4
[~2023-01-12 07:30] MED LIST changes: -AZIT250T PO; -METH4TAB17 PO; +PRED20TA PO; -PRED50TA PO
[2023-01-12 07:48] VITALS: O2SAT 97
[2023-01-12] MEDS ORDERED: ALBUTEROL FS 2.5 MG/3 ML VIAL.NEB ONE ×2 (07:48→09:53)
[2023-01-12] MEDS ORDERED: IPRATROPIUM NEB FS 0.5 MG/2.5 ML AMPUL.NEB ONE ×2 (07:48→09:53)
[2023-01-12] MEDS ORDERED: ALBUTEROL FS 2.5 MG/3 ML VIAL.NEB NEB ONE ×2 (08:00→10:00)
[2023-01-12] MEDS ORDERED: methylPREDNISolone SOD SUCC 125 MG/2ML VIAL IV ONE (08:00)
[2023-01-12] MEDS ORDERED: IPRATROPIUM NEB FS 0.5 MG/2.5 ML AMPUL.NEB NEB ONE ×2 (08:00→10:00)
[2023-01-12] MEDS ORDERED: Magnesium 1GM/D5W 100ML PREMIX 200 ML IV ONE ×2 (08:00→08:11)
[2023-01-12] MEDS ORDERED: methylPREDNISolone SOD SUCC 125 MG/2ML VIAL ONE (08:11)
[2023-01-12 08:19] LABS: BASOPHILS # (AUTO) 0.1 K/uL (0.0-0.2); BASOPHILS % (AUTO) 0.7 % (0.0-2.0); EOSINOPHILS # (AUTO) 1.3 K/uL (0.0-0.7); HEMATOCRIT 41 % (33-45); HEMOGLOBIN 12.8 g/dL (11.5-14.8); LYMPHOCYTES # (AUTO) 2.4 K/uL (0.8-4.8); LYMPHOCYTES % (AUTO) 23.1 % (20.0-44.0); MEAN CORPUSCULAR HEMOGLOBIN 27 PG (26.0-33.0); MEAN CORPUSCULAR HGB CONC 32 g/dl (31.0-36.0); MEAN CORPUSCULAR VOLUME 85 fL (82-100); MONOCYTES # (AUTO) 0.7 K/uL (0.1-1.30); MONOCYTES % (AUTO) 6.6 % (2.0-12.0); NEUTROPHILS # (AUTO) 5.8 K/uL (1.8-8.9); NEUTROPHILS % (AUTO) 56.6 % (43.0-81.0); PLATELET COUNT (AUTO) 246 K/uL (150-450); RED CELL DISTRIBUTION WIDTH 14.9 % (11.5-15.0); WHITE BLOOD COUNT (AUTO) 10.3 K/uL (4.3-11.0)
[2023-01-12 08:30] LABS: CALCIUM, SERUM 9.4 mg/dL (8.5-10.1); CREATININE 0.8 mg/dL (0.6-1.3); POTASSIUM 3.8 mmol/L (3.5-5.1)
[2023-01-12 08:51] VITALS: O2SAT 99
[2023-01-12] MEDS ORDERED: BUDE10.2 IH (09:28)
[2023-01-12 09:52] VITALS: O2SAT 90
[2023-01-12] MEDS ORDERED: ALBU18HF2 INH (10:15)
[2023-01-12] MEDS ORDERED: PRED50TA PO (10:15)
[2023-01-12 10:27] VITALS: O2SAT 96
[2023-01-12 10:32] VITALS: BP 128/84; O2SAT 94
== END 2023-01-12 10:33 | disposition left against medical advice (07) ==
LOC: ER 07:38
DX: J45.901 Unspecified asthma with (acute) exacerbation (principal); R06.03 Acute respiratory distress; R09.02 Hypoxemia; Z79.899 Other long term (current) drug therapy; Z20.822 Contact with and (suspected) exposure to COVID-19
CPT/HCPCS: 99291; 96365; 96375; 87426; 93005; 71045; 85025; 80048; 36415; 94640; 94644; J2930; A4223; J3475; C9803